=== PATIENT | male | born 1965 | race Caucasian/White ===

== ENCOUNTER 2016-12-13 05:48 | Inpatient (IN) | payer OTHER ==
[2016-12-13] MEDS ORDERED: LR 1,000 ML IV SCH (06:03)
[2016-12-13] MEDS ORDERED: ceFAZolin 2 GM/DEXTROSE 100 ML IV ONE (06:03)
[2016-12-13] MEDS ORDERED: LIDOCAINE 1% 2 ML INJ ID PRN (06:04)
[2016-12-13] MEDS ORDERED: POLYMYXIN B SULFATE 500,000 UNIT/10 ML SYR IRR ONE (06:41)
[2016-12-13] MEDS ORDERED: BACITRACIN 50,000 UNITS/10 ML SYR IRR ONE (06:41)
[2016-12-13] MEDS ORDERED: ONDANSETRON 4 MG/2 ML VIAL IVP PRN (06:53)
[2016-12-13] MEDS ORDERED: KETOROLAC 15 MG/1 ML SDV IVP ONE (06:53)
--- NOTE | 2016-12-13 06:53 | PDHPUP ---
History & Physical Update H&P update statement: This history and physical update is based on an assessment of the patient which was completed after admission or registration (within 24 hours), but prior to the surgery/procedure.
[2016-12-13] MEDS ORDERED: oxyCODONE IR 5 MG TAB PO PRN (06:55)
--- NOTE | 2016-12-13 06:57 | PDIAF ---
- Diagnosis Diagnosis: right shoulder djd Code Status: Full Code - Medication Management Discharge Medications: Medications to Continue on Transfer Allopurinol [Allopurinol 300 MG (RX)] 300 mg PO DAILY 12/09/16 [Last Taken 12/12] Chlorthalidone [Chlorthalidone 25 mg (*)] 25 mg PO DAILY 12/09/16 [Last Taken ] Herbals/Supplements -Info Only 1 ea PO DAILY 12/09/16 [Last Taken 12/06/16] Lisinopril [Zestril 40 mg (*)] 40 mg PO DAILY 12/09/16 [Last Taken 12/13/16] Multivitamins [Multivitamin (*)] 1 each PO DAILY 12/09/16 [Last Taken 12/06/16] [place]-3 Fatty Acids [Fish Oil 1000 mg (*)] 1,000 mg PO DAILY 12/09/16 [Last Taken 12/06/16] amLODIPine BESYLATE [Norvasc 10 mg (*)] 10 mg PO DAILY 12/09/16 [Last Taken 01/18] Discharge Medications: Refer to the Discharge Home Medication list for PRN reason. - Orders Services needed: Physical Therapy Diet Recommendation: no restrictions on diet Diet Texture: Regular Texture Diet Activity/Weight Bearing Restrictions: sling at all times. may remove sling for pendulum rom. daily dressing changes. seek attn for increasing redness, swelling, drainage. f/u at two weeks - Follow Up Care Current Providers and Referrals: Ronak Rubin MD [Primary Care Provider] -
[2016-12-13] MEDS ORDERED: MIDAZOLAM 2 MG/2 ML VIAL ONE (07:00)
[2016-12-13] MEDS ORDERED: PROPOFOL/EMULSION 500 MG/50 ML BOTTLE IV ONE (07:00)
[2016-12-13] MEDS ORDERED: fentaNYL 100 MCG/2 ML INJ ONE (07:00)
[2016-12-13] MEDS ORDERED: D5W 1/2 NS W/ 20 KCl/L 1,000 ML IV SCH (07:00)
[2016-12-13] MEDS ORDERED: RANITIDINE 50 MG/2 ML VIAL ONE (07:08)
[2016-12-13] MEDS ORDERED: METOCLOPRAMIDE 10 MG/2 ML VIAL ONE (07:08)
[2016-12-13] MEDS ORDERED: ONDANSETRON 4 MG/2 ML VIAL ONE (07:08)
[2016-12-13] MEDS ORDERED: KETOROLAC 30 MG/1 ML SDV ONE (07:08)
[2016-12-13] MEDS ORDERED: LIDOCAINE 2% 5 ML SDV ONE (07:08)
[2016-12-13] MEDS ORDERED: ROPIVACAINE HCL 150 MG/30 ML INJ ONE (07:09)
--- NOTE | 2016-12-13 07:51 | PDANEPAE ---
ANE Past Medical History - Cardiovascular History Hx Hypertension: Yes Hx Arrhythmias: No Hx Chest Pain: No Hx Coronary Artery / Peripheral Vascular Disease: No Hx CHF / Valvular Disease: No Hx Palpitations: No - Pulmonary History Hx COPD: No Hx Asthma/Reactive Airway Disease: No Hx Recent Upper Respiratory Infection: No Hx Oxygen in Use at Home: No Hx Sleep Apnea: Yes Sleep Apnea Screening Result - Last Documented: Positive - Neurologic History Hx Cerebrovascular Accident: No Hx Seizures: No Hx Dementia: No - Endocrine History Hx Diabetes: No - Renal History Hx Renal Disorders: No - Liver History Hx Hepatic Disorders: No - Neurological & Psychiatric Hx Hx Neurological and Psychiatric Disorders: No - Cancer History Hx Cancer: Yes Cancer History Comment: skin ca - Congenital Disorder History Hx Congenital Disorders: No - GI History Hx Gastrointestinal Disorders: Yes Gastrointestinal History Comment: IBS WITH DIAHREA - Chronic Pain History Chronic Pain: Yes (RIGHT KNEE) - Surgical History Prior Surgeries: gall bladder remove 2015 ANE Review of Systems Review of Systems: - Exercise capacity METS (RN): 4 METS ANE Patient History - Allergies Allergies/Adverse Reactions: No Known Allergies Allergy (Unverified 12/07/16 11:37) - Home Medications Home Medications: Allopurinol [Allopurinol 300 MG (RX)] 300 mg PO DAILY 12/09/16 [Last Taken 12/12] Chlorthalidone [Chlorthalidone 25 mg (*)] 25 mg PO DAILY 12/09/16 [Last Taken ] Herbals/Supplements -Info Only 1 ea PO DAILY 12/09/16 [Last Taken 12/06/16] Lisinopril [Zestril 40 mg (*)] 40 mg PO DAILY 12/09/16 [Last Taken 12/13/16] Multivitamins [Multivitamin (*)] 1 each PO DAILY 12/09/16 [Last Taken 12/06/16] [place]-3 Fatty Acids [Fish Oil 1000 mg (*)] 1,000 mg PO DAILY 12/09/16 [Last Taken 12/06/16] amLODIPine BESYLATE [Norvasc 10 mg (*)] 10 mg PO DAILY 12/09/16 [Last Taken 01/18] - NPO status NPO Since - Liquids (Date): 12/12/16 NPO Since - Liquids (Time): 21:00 NPO Since - Solids (Date): 12/12/16 NPO Since - Solids (Time): 21:00 - Smoking Hx Smoking Status: Never smoked - Family Anes Hx Family Hx Anesthesia Complications: none ANE Labs/Vital Signs - Vital Signs Heart Rate: 69 Respiratory Rate: 16 O2 Sat (%): 94 Height: 175.26 cm Weight: 79.379 kg ANE Physical Exam - Airway Mallampati Score: Class 2 Mouth exam: poor dentition, ayala - Pulmonary Pulmonary: no rales or rhonchi, reduced air movement - Cardiovascular Cardiovascular: regular rate and rhythym, no murmur, rub, or gallop, pulses symmetric bilaterally - ASA Status ASA Status: II (loose right upper incisor) ANE Anesthesia Plan Anesthesia Plan: GA w LMA Regional Anesthesia: supraclavicular BP NB
[2016-12-13] MEDS ORDERED: METOCLOPRAMIDE 10 MG/2 ML VIAL IVP PRN (08:11)
[2016-12-13] MEDS ORDERED: LR 500 ML IV PRN (08:11)
[2016-12-13] MEDS ORDERED: NALOXONE HCL 0.4 MG/ML INJ IVP PRN (08:11)
[2016-12-13] MEDS ORDERED: PROMETHAZINE HCL 25 MG/ML INJ IVP PRN (08:11)
[2016-12-13] MEDS ORDERED: fentaNYL 100 MCG/2 ML INJ IVP PRN (08:11)
[2016-12-13] MEDS ORDERED: ACETAMINOPHEN 500 MG TAB PO PRN (08:11)
[2016-12-13] MEDS ORDERED: MEPERIDINE 25 MG/ML SYR IVP PRN (08:11)
[2016-12-13] MEDS ORDERED: ALBUTEROL 3 ML DEYVIAL IH PRN (08:11)
[2016-12-13] MEDS ORDERED: HYDROCODONE/APAP 5/325 TAB PO PRN (08:11)
[2016-12-13] MEDS ORDERED: DEXAMETHASONE 4 MG/ML VIAL IVP PRN (08:11)
[2016-12-13] MEDS ORDERED: BUPIVACAINE/EPI 0.5% 30 ML SDV ONE (08:36)
[2016-12-13] MEDS ORDERED: MULTIVITAMINS 1 EACH TAB PO SCH (09:00)
[2016-12-13] MEDS ORDERED: OMEGA-3 FATTY ACIDS 1,000 MG CAP PO SCH (09:00)
[2016-12-13] MEDS ORDERED: DOCUSATE SODIUM 100 MG CAP PO SCH (09:00)
[2016-12-13] MEDS ORDERED: LISINOPRIL 40 MG TAB PO SCH (09:00)
[2016-12-13] MEDS ORDERED: CHLORTHALIDONE 25 MG TAB PO SCH (09:00)
[2016-12-13] MEDS ORDERED: Herbals/Supplements -Info Only PO SCH (09:00)
[2016-12-13] MEDS ORDERED: ALLOPURINOL 300 MG TAB PO SCH (09:00)
[2016-12-13 10:14] VITALS: RESP 16
--- NOTE | 2016-12-13 10:15 | POSTANESTH ---
Post Anesthetic Evaluation Cardiovascular Status: Normal, Stable Respiratory Status: Normal, Stable Level of Consciousness/Mental Status: Mildly Sleepy, Arousable Pain Control: Adequate, Prn Tx Ordered Nausea/Vomiting Control: Adequate, Prn Tx Ordered Complications Possibly Related to Anesthesia: None Noted
[2016-12-13 11:23] VITALS: O2SAT 94
[2016-12-13] MEDS ORDERED: KETOROLAC 15 MG/1 ML SDV IVP SCH (12:00)
[2016-12-13] MEDS ORDERED: ceFAZolin 2 GM/DEXTROSE 100 ML IV SCH (14:00)
[2016-12-13 16:06] VITALS: BP 131/94; PULSE 70; TEMP 97.6
--- NOTE | 2016-12-13 18:03 | ASDISCHSUM ---
Discharge Information Plan Status:Home with No Needs Medically Cleared to Leave: Discharge Date:12/13/2016 05:51 PM CM D/C Disposition:Home, Routine, Self-Care ADT D/C Disposition:Home, Routine, Self-Care Projected Discharge Date:12/13/2016 05:51 PM Transportation at D/C:Family Discharge Delay Reason: Follow-Up Date:12/13/2016 05:51 PM Discharge Slot: Final Diagnosis: Placement Information Patient Contact Information Contact Name:YUAN Relationship: Address:[address] Work Phone: City:[place] Alternate Phone: [facility]/Zip Code:[place] [address] Email: Financial Information Financial Class:HMO and PPO Plans Primary Plan Desc:LITA PPO POS HMO Primary Plan Number:[id number] Secondary Plan Desc: Secondary Plan Number: Assessment Information Intervention Information
== END 2016-12-13 17:51 | disposition home or self-care (01) | DRG 483 ==
LOC: F3N 05:48 → INTOOBSV 05:48 → OBSVTOIN 05:48 → F3N 10:05
PROVIDERS: ADMIT Orthopaedic Surgery; ATTEND Orthopaedic Surgery
PROC: 0RRJ0JZ Replacement of Right Shoulder Joint with Synthetic Substitute, Open Approach (ICD-10-PCS; principal; 2016-12-13 07:15)
PROC: BP48ZZZ Ultrasonography of Right Shoulder (ICD-10-PCS; principal; 2016-12-13 07:15)
DX: M19.011 Primary osteoarthritis, right shoulder (principal); K21.9 Gastro-esophageal reflux disease without esophagitis; M10.9 Gout, unspecified; I10 Essential (primary) hypertension; Z85.828 Personal history of other malignant neoplasm of skin
CPT/HCPCS: J0690; J1885; J2250; J2405; J2704; J2765; J2780; J2795; J3010

== ENCOUNTER → 2017-01-25 | Outpatient (CLI) | payer OTHER | LOC: BMCIMAGING 13:48 | PROVIDERS: ATTEND Orthopaedic Surgery | DX: Z47.1 Aftercare following joint replacement surgery (principal); Z96.611 Presence of right artificial shoulder joint ==

== ENCOUNTER → 2017-03-09 | Outpatient (CLI) | payer BC | LOC: BMCIMAGING 08:00 | PROVIDERS: ATTEND Orthopaedic Surgery | DX: Z47.1 Aftercare following joint replacement surgery (principal); Z96.611 Presence of right artificial shoulder joint ==

== ENCOUNTER → 2017-06-08 | Outpatient (CLI) | payer BC | LOC: BMCIMAGING 08:51 | PROVIDERS: ATTEND Orthopaedic Surgery | DX: Z47.1 Aftercare following joint replacement surgery (principal); Z96.611 Presence of right artificial shoulder joint ==